=== PATIENT | male | born 1950 | race Two or more races ===

== ENCOUNTER → 2020-10-27 | Emergency (ER) | payer OTHER ==
[~2020-10-27] VITALS: Ht 175.3 cm; Wt 77.1 kg
[~2020-10-27] MED LIST: LOTREL 10-20 M1 EACH; SIMVASTATIN5 MG; ULTRAM50 MG PO; XARELTO15 MG PO
== END | disposition home or self-care (01) ==
LOC: ER 16:43
DX: I82.491 Acute embolism and thrombosis of other specified deep vein of right lower extremity (principal); I87.2 Venous insufficiency (chronic) (peripheral); M79.604 Pain in right leg; M79.605 Pain in left leg